=== PATIENT | male | born 1970 | race Caucasian/White ===

== ENCOUNTER 2019-04-25 15:17 | Emergency (ER) | payer BC ==
[~2019-04-25] VITALS: Ht 172.7 cm; Wt 87.0 kg
[2019-04-25] MEDS ORDERED: AMOX875T2 (15:27)
[2019-04-25] MEDS ORDERED: LISI-538 (15:27)
[2019-04-25] MEDS ORDERED: KETOROLAC 30 MG/ML VIAL (J1885) IV ONE (17:30)
[2019-04-25] MEDS ORDERED: NS 1,000 ML IV ONE (17:30)
[2019-04-25] MEDS ORDERED: ISOVUE-370 76% 100ML VIAL (Q9967) As Ordered ONE (17:51)
[2019-04-25 17:55] LABS: BASO # 0.1 10^3/uL (0.0-0.2); BASO % 0.9 % (0.0-1.0); EOS # 0.2 10^3/uL (0.0-0.5); EOS % 1.7 % (0.0-3.0); HEMATOCRIT 49.3 % (42.0-52.0); HEMOGLOBIN 17.1 g/dl (13.5-17.5); LYMPH # 2.2 10^3/uL (1.5-5.0); LYMPH % 18.8 % (24.0-44.0); MEAN CORPUSCULAR HEMOGLOBIN 30.9 pg (27.0-33.0); MEAN CORPUSCULAR HGB CONC 34.7 g/dl (32.0-36.5); MONO # 0.8 10^3/uL (0.0-0.8); MONO % 7.2 % (0.0-5.0); NEUTROPHILS # 8.2 10^3/uL (1.5-8.5); NEUTROPHILS % 71.1 % (36.0-66.0); PLATELET COUNT, AUTOMATED 218 10^3/uL (150-450); RED BLOOD COUNT 5.54 10^6/uL (4.30-6.10); WHITE BLOOD COUNT 11.5 10^3/uL (4.0-10.0)
--- NOTE | 2019-04-25 18:46 | REPVR ---
PROCEDURE INFORMATION: Exam: CT Maxillofacial With Contrast Exam date and time: 04/25/2019 5:58 PM Clinical history: 48 years old, male; Other: Swelling; Additional info: L maxillary swelling, tooth pain TECHNIQUE: Imaging protocol: Computed tomography images of the face with intravenous contrast. Radiation optimization: All CT scans at this facility use at least one of these dose optimization techniques: automated exposure control; mA and/or kV adjustment per patient size (includes targeted exams where dose is matched to clinical indication); or iterative reconstruction. Contrast material: ISOVUE 370; Contrast volume: 75 ml; Contrast route: IV; COMPARISON: No relevant prior studies available. FINDINGS: Orbits: Orbits are normal. Globes are unremarkable. Sinuses: Inflammatory changes in the base of the right maxillary sinus. Bones/joints: No acute fracture. Soft tissues: Soft tissue edema in the left perimandibular and multiple region without evidence of a well-defined abscess. Finding may be of dental origin. IMPRESSION: Soft tissue edema in the left perimandibular and multiple region without evidence of a well-defined abscess. Finding may be of dental origin. Electronically signed by: Rory White On 04/25/2019 18:46:28 PM
[2019-04-25 19:25] VITALS: BP 180/100
== END 2019-04-25 19:40 | disposition home or self-care (01) ==
LOC: M ED 15:17
DX: R22.0 Localized swelling, mass and lump, head (principal); K08.89 Other specified disorders of teeth and supporting structures; I10 Essential (primary) hypertension; Z79.899 Other long term (current) drug therapy
CPT/HCPCS: 36415; 70487; 80047; 85025; 96374; 99284; J1885; Q9967